=== PATIENT | female | born 1935 | race Caucasian/White ===

== ENCOUNTER 2017-11-04 11:10 | Emergency (ER) | payer SELFPAY ==
[~2017-11-04] VITALS: Ht 165.1 cm; Wt 75.0 kg
[2017-11-04 11:13] VITALS: BP 131/88
[2017-11-04] MEDS ORDERED: ESCI5TAB PO (15:04)
[2017-11-04] MEDS ORDERED: POTA20TA19 PO (15:07)
[2017-11-04] MEDS ORDERED: FURO40TA4 PO (15:07)
[2017-11-04] MEDS ORDERED: APIX5TAB3 PO (15:08)
[2017-11-04] MEDS ORDERED: DILT120C51 PO (15:11)
[2017-11-04] MEDS ORDERED: HYDR-565 PO (15:14)
[2017-11-05] MEDS ORDERED: iohexol 300mg/ml 100ml inj. ONE (08:52)
== END 2017-11-04 11:11 | disposition home or self-care (01) ==
LOC: EDBD → MERGE 11:10 → ER 11:10
DX: R10.9 Unspecified abdominal pain (principal); Z53.21 Procedure and treatment not carried out due to patient leaving prior to being seen by health care provider
CPT/HCPCS: J7030; Q9967

== ENCOUNTER 2017-11-04 11:20 | Inpatient (IN) | payer MEDICARE, MEDICAID ==
[~2017-11-04] VITALS: Ht 160 cm; Wt 75.0 kg
[2017-11-04] MEDS ORDERED: normal saline 1000ML IV soln IVB ONE (12:40)
[2017-11-04] MEDS: diatr meglu/diatrizoate 30ml oral sol.-(3 dose) bottle PO SCH ×4 (13:00→21:13)
[2017-11-04 13:07] LABS: BASOPHILS % (AUTO) 0.1 % (0-1); EOSINOPHILS % (AUTO) 0.1 % (0-6); HEMATOCRIT 32.2 % (35.0-45.0); HEMOGLOBIN 11.1 g/dl (12.0-16.0); LYMPHOCYTES # (AUTO) 0.5 X10'3 (1.1-4.8); LYMPHOCYTES % (AUTO) 5.3 % (21-51); MEAN CORPUSCULAR HEMOGLOBIN 30.3 PG (27.0-31.0); MEAN CORPUSCULAR HGB CONC 34.4 % (33.0-36.5); MEAN PLATELET VOLUME 8.7 FL (7.4-10.4); MONOCYTES # (AUTO) 0.6 X10'3 (0-0.9); NEUTROPHILS # (AUTO) 8.8 X10'3 (1.8-7.7); NEUTROPHILS % (AUTO) 88.5 % (42-75); PLATELET COUNT 105 X10'3 (140-440); RED BLOOD COUNT 3.66 X10'6 (4.20-5.60); RED CELL DISTRIBUTION WIDTH 17.1 % (11.5-14.5)
[2017-11-04] MEDS ORDERED: diltiazem 5mg/ml 5ml inj. IV ONE (13:20)
[2017-11-04 13:21] LABS: ALANINE AMINOTRANSFERASE 47 U/L (12-78); ALBUMIN 2.6 G/DL (3.4-5.0); ALBUMIN/GLOBULIN RATIO 0.7 (1.1-1.5); ALKALINE PHOSPHATASE 300 IU/L (46-116); ANION GAP 9 (8-16); ASPARTATE AMINO TRANSFERASE 34 U/L (10-37); BILIRUBIN,TOTAL 2.4 MG/DL (0.1-1.0); BLOOD UREA NITROGEN 19 MG/DL (7-18); BUN/CREATININE RATIO 24.1 (6.6-38.0); CALCIUM 8.4 MG/DL (8.5-10.1); CHLORIDE 101 MMOL/L (99-107); CREATININE 0.79 MG/DL (0.40-0.90); GLUCOSE 107 MG/DL (70-104); POTASSIUM 3.2 MMOL/L (3.5-5.1); SODIUM 135 MMOL/L (135-145); TOTAL CARBON DIOXIDE 24.8 MMOL/L (24-32); TOTAL PROTEIN 6.6 G/DL (6.4-8.2); eGFR 69 ML/MIN
[2017-11-04 13:30] LABS: LIPASE < 50 U/L (73-393); MAGNESIUM 2.1 MG/DL (1.5-2.4)
[2017-11-04] MEDS ORDERED: iohexol 300mg/ml 100ml inj. ONE (13:47)
[2017-11-04 13:50] LABS: ANISOCYTOSIS 1+; PLATELET ESTIMATE DECREASED; TOTAL CELLS COUNTED 100
[2017-11-04 14:10] LABS: CLARITY,URINE CLOUDY (Clear); COLOR,URINE YELLOW (Yellow); GLUCOSE, URINE NEGATIVE (Neg); KETONES,URINE NEGATIVE (Neg); LEUKOCYTE ESTERASE ,URINE NEGATIVE (Neg); NITRITES, URINE NEGATIVE (Neg); OCCULT BLOOD,URINE LARGE (Neg); PROTEIN,URINE TRACE mg/dl (Neg); UA COLLECTION TYPE FOLEY CATH
[2017-11-04] MEDS ORDERED: heparin 10,000 units/1 ML INJ IV ONE ×2 (14:10→15:50)
[2017-11-04 14:17] LABS: MUCUS STRANDS FEW /LPF (Neg); SQUAMOUS EPITHELIAL CELL,UR MODERATE /LPF (FEW)
[2017-11-04 14:18] LABS: BACTERIA,URINE FEW /HPF (Neg)
[2017-11-04 14:19] LABS: RBC,URINE 20-50 /HPF (0-2); WBC,URINE 0-4 /HPF (0-4)
[2017-11-04 14:20] LABS: AMORPHOUS URATES 2+
[2017-11-04] MEDS ORDERED: verapamil 2.5 mg/ml inj IV ONE (14:50)
[2017-11-04 15:00] LABS: INR 1.1 INR; PARTIAL THROMBOPLASTIN TIME 33 SECONDS (22-32); PROTHROMBIN TIME 11.6 SECONDS (9.0-12.0)
[2017-11-04] MEDS ORDERED: potassium Cl 20 mEq SR tablet PO STA (15:00)
[2017-11-04] MEDS ORDERED: ESCI5TAB PO (15:04)
[2017-11-04] MEDS ORDERED: HYDROcodone/acetaminophen 10/325mg tab PO ONE (15:05)
[2017-11-04] MEDS ORDERED: FURO40TA4 PO (15:07)
[2017-11-04] MEDS ORDERED: POTA20TA19 PO (15:07)
[2017-11-04] MEDS ORDERED: APIX5TAB3 PO (15:08)
[2017-11-04] MEDS ORDERED: DILT120C51 PO (15:11)
[2017-11-04] MEDS ORDERED: HYDR-565 PO (15:14)
[2017-11-04] MEDS ORDERED: morphine 4 MG/ML inj SYRINge IV PRN (17:05)
[2017-11-04] MEDS ORDERED: mag hydrox/Alum hydrox/simeth 30ml oral suspension PO PRN (17:05)
[2017-11-04] MEDS ORDERED: ondansetron/PF 4mg/2ml inj IV PRN (17:05)
[2017-11-04] MEDS: HYDROcodone/acetaminophen 10/325mg tab PO SCH (19:37)
[2017-11-04] MEDS: furosemide 10 MG/1 ML 10ml inj IV SCH (19:37)
[2017-11-04] MEDS: diltiazem CD 120mg capsule (once-daily) PO SCH (19:37)
[2017-11-04] MEDS: apixaban 5mg tablet PO SCH (19:38)
[2017-11-04 21:25] VITALS: BP 124/70
[2017-11-05 01:22] LABS: BASOPHILS % (AUTO) 0 % (0-1); EOSINOPHILS # (AUTO) 0.1 X10'3 (0-0.9); EOSINOPHILS % (AUTO) 0.7 % (0-6); HEMATOCRIT 28.4 % (35.0-45.0); HEMOGLOBIN 9.5 g/dl (12.0-16.0); LYMPHOCYTES # (AUTO) 0.7 X10'3 (1.1-4.8); LYMPHOCYTES % (AUTO) 7.7 % (21-51); MEAN CORPUSCULAR HEMOGLOBIN 29.9 PG (27.0-31.0); MEAN CORPUSCULAR HGB CONC 33.6 % (33.0-36.5); MEAN CORPUSCULAR VOLUME 88.8 FL (78-98); MEAN PLATELET VOLUME 9.5 FL (7.4-10.4); MONOCYTES # (AUTO) 0.5 X10'3 (0-0.9); MONOCYTES % (AUTO) 5.6 % (2-12); NEUTROPHILS # (AUTO) 7.7 X10'3 (1.8-7.7); PLATELET COUNT 94 X10'3 (140-440); RED CELL DISTRIBUTION WIDTH 15.9 % (11.5-14.5)
[2017-11-05 01:27] LABS: ALBUMIN 2.1 G/DL (3.4-5.0); ANION GAP 6 (8-16); BLOOD UREA NITROGEN 18 MG/DL (7-18); BUN/CREATININE RATIO 21.4 (6.6-38.0); CALCIUM 7.9 MG/DL (8.5-10.1); CHLORIDE 104 MMOL/L (99-107); CREATININE 0.84 MG/DL (0.40-0.90); GLUCOSE 97 MG/DL (70-104); POTASSIUM 3.3 MMOL/L (3.5-5.1); SODIUM 137 MMOL/L (135-145); TOTAL CARBON DIOXIDE 27.1 MMOL/L (24-32); eGFR 65 ML/MIN
[2017-11-05] MEDS: HYDROcodone/acetaminophen 10/325mg tab PO SCH ×3 (02:00→13:21)
[2017-11-05 03:00] VITALS: BP 107/56
[2017-11-05 06:00] VITALS: BP 112/58
[2017-11-05] MEDS: diatr meglu/diatrizoate 30ml oral sol.-(3 dose) bottle PO SCH ×2 (07:18→09:27)
[2017-11-05] MEDS: apixaban 5mg tablet PO SCH ×2 (07:30→19:48)
[2017-11-05] MEDS: CITALOpram 10mg tablet PO SCH (07:30)
[2017-11-05] MEDS: furosemide 10 MG/1 ML 10ml inj IV SCH ×2 (07:31→19:49)
[2017-11-05] MEDS: diltiazem CD 120mg capsule (once-daily) PO SCH ×2 (09:29→19:48)
[2017-11-05 11:00] VITALS: BP 119/63
[2017-11-05] MEDS: potassium Cl 20 mEq SR tablet PO SCH (11:23)
[2017-11-05 15:00] VITALS: BP 111/69
[2017-11-05] MEDS ORDERED: HYDROcodone/acetaminophen 5mg/325mg tablet PO PRN (18:45)
[2017-11-05] MEDS ORDERED: HYDROcodone/acetaminophen 10/325mg tab PO PRN (18:45)
[2017-11-05 19:00] VITALS: BP_SYST 124; BP_DIAS 70; BP_DIAS 74
[2017-11-05] MEDS: magnesium hydroxide 30ml (MOM) UD suspension PO PRN (19:47)
[2017-11-05 23:00] VITALS: BP 137/77
[2017-11-06 03:04] VITALS: BP 125/73
[2017-11-06 05:31] LABS: BASOPHILS % (AUTO) 0 % (0-1); EOSINOPHILS # (AUTO) 0.1 X10'3 (0-0.9); HEMATOCRIT 29.4 % (35.0-45.0); HEMOGLOBIN 9.9 g/dl (12.0-16.0); LYMPHOCYTES # (AUTO) 0.7 X10'3 (1.1-4.8); LYMPHOCYTES % (AUTO) 5.8 % (21-51); MEAN CORPUSCULAR HGB CONC 33.7 % (33.0-36.5); MEAN PLATELET VOLUME 9.8 FL (7.4-10.4); MONOCYTES # (AUTO) 0.7 X10'3 (0-0.9); MONOCYTES % (AUTO) 5.3 % (2-12); NEUTROPHILS # (AUTO) 11.1 X10'3 (1.8-7.7); NEUTROPHILS % (AUTO) 87.9 % (42-75); PLATELET COUNT 102 X10'3 (140-440); RED BLOOD COUNT 3.31 X10'6 (4.20-5.60); RED CELL DISTRIBUTION WIDTH 17.2 % (11.5-14.5); WHITE BLOOD COUNT 12.6 X10'3 (4.5-11.0)
[2017-11-06 05:46] LABS: ALBUMIN 2.2 G/DL (3.4-5.0); ANION GAP 8 (8-16); BLOOD UREA NITROGEN 25 MG/DL (7-18); BUN/CREATININE RATIO 22.9 (6.6-38.0); CALCIUM 8.1 MG/DL (8.5-10.1); CHLORIDE 103 MMOL/L (99-107); CREATININE 1.09 MG/DL (0.40-0.90); GLUCOSE 104 MG/DL (70-104); POTASSIUM 3.7 MMOL/L (3.5-5.1); SODIUM 138 MMOL/L (135-145); TOTAL CARBON DIOXIDE 27.4 MMOL/L (24-32); eGFR 48 ML/MIN
[2017-11-06 06:00] VITALS: BP 125/66
[2017-11-06] MEDS: CITALOpram 10mg tablet PO SCH (07:40)
[2017-11-06] MEDS: apixaban 5mg tablet PO SCH ×2 (07:40→19:56)
[2017-11-06] MEDS: magnesium hydroxide 30ml (MOM) UD suspension PO PRN (07:41)
[2017-11-06] MEDS: diltiazem CD 120mg capsule (once-daily) PO SCH ×2 (07:41→19:56)
[2017-11-06] MEDS: potassium Cl 20 mEq SR tablet PO SCH (07:41)
[2017-11-06] MEDS: furosemide 10 MG/1 ML 10ml inj IV SCH (07:42)
[2017-11-06 11:00] VITALS: BP 107/63
[2017-11-06] MEDS ORDERED: vancomycin/NS 1 GM ADD-VANTAGE 250 ML IV SCH (11:00)
[2017-11-06 11:20] LABS: ANISOCYTOSIS 1+; PLATELET ESTIMATE DECREASED; TOTAL CELLS COUNTED 100
[2017-11-06 11:30] LABS: INR 1.2 INR; PROTHROMBIN TIME 11.9 SECONDS (9.0-12.0)
[2017-11-06] MEDS: vancomycin/NS 1 GM ADD-VANTAGE 250 ML IV SCH (13:13)
[2017-11-06 15:00] VITALS: BP 100/60
[2017-11-06 18:00] VITALS: BP 125/54
[2017-11-06] MEDS: normal saline 1000ml 1,000 ML IV SCH (19:57)
[2017-11-06] MEDS: acetaminophen 325mg tablet PO PRN (20:56)
[2017-11-06 22:00] VITALS: BP 122/71
[2017-11-07 02:00] VITALS: BP 132/66
[2017-11-07 05:10] LABS: BASOPHILS % (AUTO) 0.1 % (0-1); EOSINOPHILS # (AUTO) 0.2 X10'3 (0-0.9); EOSINOPHILS % (AUTO) 1.6 % (0-6); HEMATOCRIT 29.7 % (35.0-45.0); LYMPHOCYTES % (AUTO) 8.5 % (21-51); MEAN CORPUSCULAR HGB CONC 33.7 % (33.0-36.5); MEAN CORPUSCULAR VOLUME 89.3 FL (78-98); MEAN PLATELET VOLUME 9.3 FL (7.4-10.4); MONOCYTES # (AUTO) 0.7 X10'3 (0-0.9); MONOCYTES % (AUTO) 5.6 % (2-12); NEUTROPHILS # (AUTO) 10.1 X10'3 (1.8-7.7); NEUTROPHILS % (AUTO) 84.2 % (42-75); PLATELET COUNT 119 X10'3 (140-440); RED BLOOD COUNT 3.32 X10'6 (4.20-5.60)
[2017-11-07 05:29] LABS: ALBUMIN 2.1 G/DL (3.4-5.0); ANION GAP 7 (8-16); BLOOD UREA NITROGEN 32 MG/DL (7-18); BUN/CREATININE RATIO 34.8 (6.6-38.0); CALCIUM 8.4 MG/DL (8.5-10.1); CHLORIDE 104 MMOL/L (99-107); CREATININE 0.92 MG/DL (0.40-0.90); GLUCOSE 105 MG/DL (70-104); POTASSIUM 3.8 MMOL/L (3.5-5.1); SODIUM 139 MMOL/L (135-145); TOTAL CARBON DIOXIDE 28.4 MMOL/L (24-32); eGFR 58 ML/MIN
[2017-11-07 06:00] VITALS: BP 152/86
[2017-11-07] MEDS ORDERED: furosemide 10 MG/1 ML 10ml inj IV SCH (08:00)
[2017-11-07] MEDS: CITALOpram 10mg tablet PO SCH (08:07)
[2017-11-07] MEDS: diltiazem CD 120mg capsule (once-daily) PO SCH ×2 (08:07→21:49)
[2017-11-07] MEDS: potassium Cl 20 mEq SR tablet PO SCH (08:07)
[2017-11-07] MEDS: apixaban 5mg tablet PO SCH ×2 (08:07→21:50)
[2017-11-07] MEDS ORDERED: glycerin ADULT rectal suppository RC PRN (09:50)
[2017-11-07] MEDS: CefTRIAXone 2gm/D5W 50ml 50 ML IV SCH (09:53)
[2017-11-07 11:00] VITALS: BP 128/78
[2017-11-07] MEDS: vancomycin/NS 1 GM ADD-VANTAGE 250 ML IV SCH (12:42)
[2017-11-07 15:00] VITALS: BP 100/67
[2017-11-07] MEDS ORDERED: mineral oil 133ml enema RC ONE (15:40)
[2017-11-07] MEDS ORDERED: bisacodyl 10mg suppository rectal RC STA (16:01)
[2017-11-07] MEDS: normal saline 1000ml 1,000 ML IV SCH (16:22)
[2017-11-07] MEDS: HYDROcodone/acetaminophen 5mg/325mg tablet PO PRN ×2 (17:54→22:09)
[2017-11-07 18:00] VITALS: BP 143/83
[2017-11-07] MEDS: lactobacillus rhamnosus 10,000 MMU CELLS/CAPSULE PO SCH (21:49)
[2017-11-07 22:00] VITALS: BP 143/81
[2017-11-08 02:00] VITALS: BP 125/70
[2017-11-08 05:58] LABS: BASOPHILS % (AUTO) 0.1 % (0-1); EOSINOPHILS # (AUTO) 0.2 X10'3 (0-0.9); EOSINOPHILS % (AUTO) 1.7 % (0-6); HEMATOCRIT 29.2 % (35.0-45.0); HEMOGLOBIN 9.8 g/dl (12.0-16.0); LYMPHOCYTES # (AUTO) 1.1 X10'3 (1.1-4.8); LYMPHOCYTES % (AUTO) 9.9 % (21-51); MEAN CORPUSCULAR HEMOGLOBIN 29.7 PG (27.0-31.0); MEAN CORPUSCULAR HGB CONC 33.5 % (33.0-36.5); MEAN CORPUSCULAR VOLUME 88.7 FL (78-98); MEAN PLATELET VOLUME 9.2 FL (7.4-10.4); MONOCYTES # (AUTO) 0.6 X10'3 (0-0.9); MONOCYTES % (AUTO) 5.6 % (2-12); NEUTROPHILS # (AUTO) 9.1 X10'3 (1.8-7.7); NEUTROPHILS % (AUTO) 82.7 % (42-75); PLATELET COUNT 135 X10'3 (140-440); RED CELL DISTRIBUTION WIDTH 17.2 % (11.5-14.5)
[2017-11-08 06:00] VITALS: BP 128/67
[2017-11-08 06:33] LABS: ANION GAP 7 (8-16); BLOOD UREA NITROGEN 27 MG/DL (7-18); CHLORIDE 107 MMOL/L (99-107); CREATININE 0.71 MG/DL (0.40-0.90); GLUCOSE 96 MG/DL (70-104); SODIUM 140 MMOL/L (135-145); TOTAL CARBON DIOXIDE 26.3 MMOL/L (24-32); eGFR 78 ML/MIN
[2017-11-08] MEDS: CefTRIAXone 2gm/D5W 50ml 50 ML IV SCH (07:01)
[2017-11-08] MEDS: CITALOpram 10mg tablet PO SCH (08:00)
[2017-11-08] MEDS: lactobacillus rhamnosus 10,000 MMU CELLS/CAPSULE PO SCH ×2 (08:00→19:34)
[2017-11-08] MEDS: diltiazem CD 120mg capsule (once-daily) PO SCH (08:00)
[2017-11-08] MEDS: potassium Cl 20 mEq SR tablet PO SCH (08:00)
[2017-11-08] MEDS: apixaban 5mg tablet PO SCH ×2 (08:01→19:34)
[2017-11-08] MEDS: normal saline 1000ml 1,000 ML IV SCH (08:29)
[2017-11-08] MEDS: HYDROcodone/acetaminophen 5mg/325mg tablet PO PRN ×2 (10:29→23:21)
[2017-11-08] MEDS: vancomycin/NS 1 GM ADD-VANTAGE 250 ML IV SCH ×2 (10:54→23:21)
[2017-11-08 11:00] VITALS: BP 131/72
[2017-11-08 15:00] VITALS: BP 123/76
[2017-11-08 19:00] VITALS: BP 133/63
[2017-11-08 23:00] VITALS: BP 134/70
[2017-11-09] MEDS: normal saline 1000ml 1,000 ML IV SCH ×2 (01:09→17:13)
[2017-11-09 03:00] VITALS: BP 145/59
[2017-11-09 05:30] LABS: BASOPHILS % (AUTO) 0.1 % (0-1); EOSINOPHILS # (AUTO) 0.3 X10'3 (0-0.9); EOSINOPHILS % (AUTO) 2.6 % (0-6); HEMATOCRIT 28.8 % (35.0-45.0); HEMOGLOBIN 9.8 g/dl (12.0-16.0); LYMPHOCYTES # (AUTO) 0.9 X10'3 (1.1-4.8); LYMPHOCYTES % (AUTO) 9.5 % (21-51); MEAN CORPUSCULAR HEMOGLOBIN 29.9 PG (27.0-31.0); MEAN CORPUSCULAR HGB CONC 33.8 % (33.0-36.5); MEAN CORPUSCULAR VOLUME 88.5 FL (78-98); MEAN PLATELET VOLUME 9.1 FL (7.4-10.4); MONOCYTES # (AUTO) 0.7 X10'3 (0-0.9); MONOCYTES % (AUTO) 7.3 % (2-12); NEUTROPHILS % (AUTO) 80.5 % (42-75); PLATELET COUNT 168 X10'3 (140-440); RED BLOOD COUNT 3.26 X10'6 (4.20-5.60); RED CELL DISTRIBUTION WIDTH 16.9 % (11.5-14.5); WHITE BLOOD COUNT 9.9 X10'3 (4.5-11.0)
[2017-11-09 05:43] LABS: ALBUMIN 1.9 G/DL (3.4-5.0); ANION GAP 5 (8-16); BLOOD UREA NITROGEN 25 MG/DL (7-18); BUN/CREATININE RATIO 35.7 (6.6-38.0); CALCIUM 7.9 MG/DL (8.5-10.1); CHLORIDE 107 MMOL/L (99-107); GLUCOSE 95 MG/DL (70-104); SODIUM 138 MMOL/L (135-145); TOTAL CARBON DIOXIDE 26.2 MMOL/L (24-32); eGFR 80 ML/MIN
[2017-11-09 06:00] VITALS: BP 146/91
[2017-11-09] MEDS: CefTRIAXone 2gm/D5W 50ml 50 ML IV SCH (08:31)
[2017-11-09] MEDS: lactobacillus rhamnosus 10,000 MMU CELLS/CAPSULE PO SCH ×2 (08:31→21:27)
[2017-11-09] MEDS: apixaban 5mg tablet PO SCH (08:32)
[2017-11-09] MEDS: CITALOpram 10mg tablet PO SCH (08:32)
[2017-11-09] MEDS: potassium Cl 20 mEq SR tablet PO SCH (08:33)
[2017-11-09] MEDS: diltiazem CD 120mg capsule (once-daily) PO SCH (08:34)
[2017-11-09 11:00] VITALS: BP 138/73
[2017-11-09] MEDS: HYDROcodone/acetaminophen 5mg/325mg tablet PO PRN ×2 (13:12→21:38)
[2017-11-09 15:00] VITALS: BP 129/75
[2017-11-09 19:00] VITALS: BP 157/81
[2017-11-09] MEDS ORDERED: VANCOMYCIN LEVEL IV ONE (22:30)
[2017-11-09 23:00] VITALS: BP 147/91
[2017-11-10] MEDS: HYDROcodone/acetaminophen 5mg/325mg tablet PO PRN ×2 (03:08→20:35)
[2017-11-10 06:00] VITALS: BP 138/83
[2017-11-10] MEDS: CITALOpram 10mg tablet PO SCH (07:43)
[2017-11-10] MEDS: diltiazem CD 120mg capsule (once-daily) PO SCH (07:43)
[2017-11-10] MEDS: potassium Cl 20 mEq SR tablet PO SCH (07:44)
[2017-11-10] MEDS: lactobacillus rhamnosus 10,000 MMU CELLS/CAPSULE PO SCH ×2 (07:44→20:35)
[2017-11-10] MEDS: CefTRIAXone 2gm/D5W 50ml 50 ML IV SCH (07:44)
[2017-11-10] MEDS: normal saline 1000ml 1,000 ML IV SCH (10:20)
[2017-11-10 11:00] VITALS: BP 157/90
[2017-11-10] MEDS: acetaminophen 325mg tablet PO PRN (13:16)
[2017-11-10 15:00] VITALS: BP 152/87
[2017-11-10 19:00] VITALS: BP 149/97
[2017-11-10 23:00] VITALS: BP 148/87
[2017-11-11 02:58] VITALS: BP 144/82
[2017-11-11] MEDS: salt irrigation nasal spray 45 ML SPRAY NS PRN ×2 (04:24→08:49)
[2017-11-11] MEDS: HYDROcodone/acetaminophen 5mg/325mg tablet PO PRN ×2 (04:34→11:40)
[2017-11-11] MEDS: normal saline 1000ml 1,000 ML IV SCH (04:34)
[2017-11-11 06:00] VITALS: BP 130/89
[2017-11-11] MEDS: CITALOpram 10mg tablet PO SCH (07:32)
[2017-11-11] MEDS: CefTRIAXone 2gm/D5W 50ml 50 ML IV SCH (07:32)
[2017-11-11] MEDS: potassium Cl 20 mEq SR tablet PO SCH (07:32)
[2017-11-11] MEDS: lactobacillus rhamnosus 10,000 MMU CELLS/CAPSULE PO SCH (07:32)
[2017-11-11] MEDS: diltiazem CD 120mg capsule (once-daily) PO SCH (07:32)
[2017-11-11 11:00] VITALS: BP 121/78
[2017-11-11 15:00] VITALS: BP 133/65
== END 2017-11-11 16:30 | DRG 871 ==
LOC: ER 11:20 → ED HOLD 17:04 → PCU 3S 21:27
PROVIDERS: ADMIT Family Medicine; ATTEND Internal Medicine
PROC: 02HV33Z Insertion of Infusion Device into Superior Vena Cava, Percutaneous Approach (ICD-10-PCS; principal; 2017-11-10)
PROC: B548ZZA Ultrasonography of Superior Vena Cava, Guidance (ICD-10-PCS; 2017-11-10)
DX: A41.9 Sepsis, unspecified organism (principal); E43 Unspecified severe protein-calorie malnutrition; I21.A1 Myocardial infarction type 2; I33.0 Acute and subacute infective endocarditis; I50.33 Acute on chronic diastolic (congestive) heart failure; R65.20 Severe sepsis without septic shock; Z51.5 Encounter for palliative care; I48.91 Unspecified atrial fibrillation; I11.0 Hypertensive heart disease with heart failure; E87.6 Hypokalemia; H91.90 Unspecified hearing loss, unspecified ear; N28.9 Disorder of kidney and ureter, unspecified; Z66 Do not resuscitate; F32.9 Major depressive disorder, single episode, unspecified; G89.29 Other chronic pain
CPT/HCPCS: 36415; 36569; 70450; 70491; 71045; 71260; 74177; 76937; 80048; 80053; 80202; 81001; 83605; 83690; 83735; 83880; 84439; 84443; 84484; 85025; 85610; 85730; 87040; 87070; 87077; 87186; 93005; 93306; 93970; 96374; 96375; 97110; 97162; 97530; 99291; A4315; A4649; A6250; J0696; J1644; J1940; J3370; J7030; Q9963; Q9967